=== PATIENT | male | born 1960 | race Caucasian/White ===

== ENCOUNTER 2017-11-25 23:38 | Emergency (ER) | payer MEDICAID ==
[~2017-11-25] VITALS: Ht 172.7 cm; Wt 75.0 kg
[2017-11-26 00:49] VITALS: BP 119/67; PULSE 106; RESP 20; TEMP 98.9; O2SAT 95
[2017-11-26] MEDS ORDERED: GABAPENTIN 400 MG CAP PO ONE ×2 (01:45→09:15)
[2017-11-26] MEDS ORDERED: oxyCODONE/ACETAMINOPHEN 10 MG/325 MG TAB PO ONE ×3 (01:45→15:15)
[2017-11-26] MEDS ORDERED: traZODone HCL 100 MG TAB PO ONE (01:45)
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
[2017-11-26] MEDS ORDERED: LEVE500 (02:45)
[2017-11-26] MEDS ORDERED: LEVO50TA4 PO (02:45)
[2017-11-26] MEDS ORDERED: OXYC1TAB63 PO (02:45)
[2017-11-26] MEDS ORDERED: ZOLO50TA PO (02:45)
[2017-11-26] MEDS ORDERED: CYCL10TA PO (02:45)
[2017-11-26] MEDS ORDERED: ENOX40P SQ (02:45)
[2017-11-26] MEDS ORDERED: DICY10 PO (02:45)
[2017-11-26] MEDS ORDERED: SIMV40TA PO (02:45)
[2017-11-26] MEDS ORDERED: TRAZ100T10 PO (02:45)
[2017-11-26] MEDS ORDERED: GABA400C5 PO (02:45)
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
[2017-11-26 09:54] VITALS: BP 138/72; PULSE 110; RESP 18; TEMP 99.2; O2SAT 97
[2017-11-26] MEDS ORDERED: levETIRAcetam 500 MG TAB PO ONE (11:00)
[2017-11-26] MEDS ORDERED: LEVOTHYROXINE SODIUM 50 MCG TAB PO ONE (11:00)
[2017-11-26] MEDS ORDERED: ENOXAPARIN SODIUM 40 MG/0.4 ML SYRINGE SQ ONE (11:00)
[2017-11-26] MEDS ORDERED: SERTRALINE HCL 50 MG TAB PO ONE (11:00)
[2017-11-26] MEDS ORDERED: CYCLOBENZAPRINE HCL 10 MG TAB PO ONE (11:00)
[2017-11-26] MEDS ORDERED: SERTRALINE HCL 50 MG TAB PO SCH (13:15)
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
[2017-11-26 18:46] VITALS: BP 136/85; PULSE 103; RESP 18; O2SAT 100
[2017-11-26] MEDS ORDERED: traZODone HCL 100 MG TAB PO SCH (21:00)
== END 2017-11-26 19:38 ==
LOC: NEPD 23:38
DX: Z04.6 Encounter for general psychiatric examination, requested by authority (principal); S42.401D Unspecified fracture of lower end of right humerus, subsequent encounter for fracture with routine healing; S82.142D Displaced bicondylar fracture of left tibia, subsequent encounter for closed fracture with routine healing; V03.90XD Pedestrian on foot injured in collision with car, pick-up truck or van, unspecified whether traffic or nontraffic accident, subsequent encounter; F43.21 Adjustment disorder with depressed mood; E78.5 Hyperlipidemia, unspecified; I10 Essential (primary) hypertension; Z86.73 Personal history of transient ischemic attack (TIA), and cerebral infarction without residual deficits; Z86.011 Personal history of benign neoplasm of the brain
CPT/HCPCS: 96372; 99285; J1650